=== PATIENT | female | born 1970 | race Caucasian/White ===

== ENCOUNTER 2020-07-03 09:31 | Emergency (ER) | payer OTHER ==
[~2020-07-03] VITALS: Ht 162.6 cm; Wt 86.2 kg
[2020-07-03] MEDS ORDERED: Norco 5-325 Ta1 EACH PO (13:51)
[2020-07-03] MEDS ORDERED: NAPR550 PO (13:51)
== END 2020-07-03 14:18 | disposition home or self-care (01) ==
LOC: ER 09:31
DX: S70.02XA Contusion of left hip, initial encounter (principal); F17.200 Nicotine dependence, unspecified, uncomplicated; V68.4XXA Person boarding or alighting a heavy transport vehicle injured in noncollision transport accident, initial encounter
CPT/HCPCS: 73502; 99283

== ENCOUNTER 2020-09-17 00:35 | Emergency (ER) | payer OTHER ==
[~2020-09-17] VITALS: Ht 167.6 cm; Wt 81.7 kg
[~2020-09-17 00:35] MED LIST: NAPR550 PO; Norco 5-325 Ta1 EACH PO
== END 2020-09-17 01:06 | disposition home or self-care (01) ==
LOC: ER 00:35
DX: S01.81XD Laceration without foreign body of other part of head, subsequent encounter (principal); F17.200 Nicotine dependence, unspecified, uncomplicated; X58.XXXD Exposure to other specified factors, subsequent encounter
CPT/HCPCS: 99281